=== PATIENT | male | born 1985 | race Asian ===

== ENCOUNTER → 2019-03-15 | Outpatient (CLI) | payer OTHER ==
--- NOTE | 2019-03-15 14:43 | REP ---
MRI RIGHT KNEE: TECHNIQUE: Axial proton density fat saturation, sagittal proton density T2 STIR, water excitation, coronal proton density, proton density fat saturation. There is a horizontal oblique tear of the posterior horn of the lateral meniscus, somewhat peripherally, posterolaterally. The tear extends in a horizontal orientation through the body of the lateral meniscus, again somewhat peripherally and extends into the anterior horn as swell. There is extensive serpiginous meniscal cyst along the peripheral aspect of the body of the lateral meniscus, which extends inferiorly along the peripheral lateral tibial plateau and appears to communicate with cystic fluid the proximal tibiofibular articulation. Maximum transverse width of this cystic fluid is approximately 8 mm at the level of the proximal lateral tibia with a maximum AP dimension at that same level 15 mL. Separate meniscal cyst along the anterior horn of the lateral meniscus measures approximately 4 x 7 x 12 mm. There is no tear of the medial meniscus. The cruciate and collateral ligaments are intact. The extensor mechanism is intact. The medial and lateral patellar retinacula are intact. There is mild global chondromalacia of the femoral condyles and tibial plateaus with no osteochondral defect. There is no bone marrow edema or other bone marrow signal abnormality. There is a small joint effusion. There is no popliteal cyst. IMPRESSION: Extensive lateral meniscal tear. The tear is predominantly horizontal in orientation and involves the anterior and posterior horns as well as the body of the lateral meniscus. There is associated meniscal cyst, which extends from the peripheral body of the lateral meniscus inferiorly into the proximal tibiofibular articulation as discussed above. There is a separate smaller meniscal cyst along the peripheral margin of the anterior horn of the lateral meniscus. The cruciate and collateral ligaments intact. There is mild chondromalacia along the femoral condyles and tibial plateaus. Small joint effusion. Electronically Signed by Brady Parker MD 03/15/2019 05:00 P
== END ==
LOC: M RAD 12:29 → EDBD 13:00
DX: M25.561 Pain in right knee (principal)